=== PATIENT | female | born 1995 | race American Indian/Alaskan Native ===

== ENCOUNTER 2021-02-20 21:14 | Emergency (ER) | payer OTHER ==
[2021-02-20 21:33] VITALS: BP 114/69
--- NOTE | 2021-02-20 22:07 | XRay Report ---
RIGHT KNEE 4 VIEW(S) INDICATION / CLINICAL INFORMATION: Slipped on some water. Right knee injury. COMPARISON: None available. FINDINGS: BONES / JOINT(S): No acute fracture or subluxation. No significant arthritis. SOFT TISSUES: There is a moderate-sized joint effusion which appears slightly dense. ADDITIONAL FINDINGS: None. IMPRESSION: 1. No acute osseous abnormality is identified. However, there is a moderate-sized slightly dense join t effusion which could indicate a hemarthrosis. MRI may be helpful for further evaluation, if clinica lly warranted. Signer Name: Keenan Barnes MD Signed: 02/20/2021 10:03 PM Workstation Name: [id number]
--- NOTE | 2021-02-20 23:27 | Emergency Department Report ---
ED Lower Extremity HPI - General Chief Complaint: Extremity Injury, Lower Stated Complaint: RT KNEE INJURY Source: patient Mode of arrival: Ambulatory Limitations: No Limitations - History of Present Illness Initial Comments: Patient is a 25-year-old -[place] female who presents for right anterior knee pain status post hyperextension slipping on water at home today. Patient states fall impacting her right knee. Now with difficulty walking. States hyperextension and possible dislocation however she was able to self reduce by straightening. Patient is partial weightbearing states limping. There is no numbness or tingling. There is 5/10 pain that is sharp exacerbated by weightbearing. Pain is relieved by offloading. Range of motion remains intact there is no obvious deformity. No laceration abrasions or bleeding. MD Complaint: knee injury - Related Data Previous Rx's Medication Instructions Recorded Last Taken Type Menthol/Camphor [[place] 1 applicatio TP Q6H PRN #1 tube 02/20/21 Unknown Rx Ointment] Naproxen 500 mg PO BID PRN #30 tablet 02/20/21 Unknown Rx predniSONE [Deltasone] 40 mg PO QDAY 5 Days #10 tab 02/20/21 Unknown Rx Allergies Allergy/AdvReac Type Severity Reaction Status Date / Time No Known Allergies Allergy Unverified 02/20/21 21:29 ED Review of Systems ROS: Stated complaint: RT KNEE INJURY Other details as noted in HPI Constitutional: denies: chills, fever Eyes: denies: eye pain, eye discharge, vision change ENT: denies: ear pain, throat pain Respiratory: denies: cough, shortness of breath, wheezing Cardiovascular: denies: chest pain, palpitations Endocrine: no symptoms reported Gastrointestinal: denies: abdominal pain, nausea, diarrhea Genitourinary: denies: urgency, dysuria, discharge Musculoskeletal: joint swelling, other (knee pain ) Skin: denies: rash, lesions Neurological: denies: headache, weakness, paresthesias Psychiatric: denies: anxiety, depression Hematological/Lymphatic: denies: easy bleeding, easy bruising ED Past Medical Hx - Social History Smoking Status: Never Smoker - Medications Home Medications: Home Medications Medication Instructions Recorded Confirmed Last Taken Type Menthol/Camphor [[place] 1 applicatio TP Q6H PRN #1 tube 02/20/21 Unknown Rx Ointment] Naproxen 500 mg PO BID PRN #30 tablet 02/20/21 Unknown Rx predniSONE [Deltasone] 40 mg PO QDAY 5 Days #10 tab 02/20/21 Unknown Rx ED Physical Exam - General Limitations: No Limitations General appearance: alert, in no apparent distress - Head Head exam: Present: atraumatic, normocephalic - Eye Eye exam: Present: normal appearance, PERRL, EOMI Pupils: Present: normal accommodation - ENT ENT exam: Present: normal exam, mucous membranes moist - Neck Neck exam: Present: normal inspection, full ROM. Absent: tenderness - Respiratory Respiratory exam: Present: normal lung sounds bilaterally. Absent: respiratory distress, wheezes, stridor, chest wall tenderness - Cardiovascular Cardiovascular Exam: Present: regular rate, normal rhythm, normal heart sounds. Absent: systolic murmur, diastolic murmur, rubs, gallop - GI/Abdominal GI/Abdominal exam: Present: soft, normal bowel sounds - Extremities Exam Extremities exam: Present: full ROM, tenderness, normal capillary refill, joint swelling (right knee ). Absent: calf tenderness - Expanded Lower Extremity Exam Right Knee exam: Present: full ROM, tenderness, swelling, effusion, pain w/ pronation/supination, pain/laxity with valgus, pain/laxity with varus, full knee extension. Absent: abrasion, laceration, ecchymosis, deformity, crepidus, dislocation, erythema, posterior draw sign Lower Leg exam: Present: full ROM. Absent: tenderness Ankle exam: Present: full ROM. Absent: tenderness Foot/Toe exam: Present: full ROM. Absent: tenderness Neuro vascular tendon exam: Absent: pulse deficit, motor deficit, sensory deficit, tendon deficit Gait: Positive: observed and limited by pain - Back Exam Back exam: Present: normal inspection, full ROM. Absent: tenderness - Neurological Exam Neurological exam: Present: alert, oriented X3, CN II-XII intact, reflexes normal. Absent: motor sensory deficit - Expanded Neurological Exam Expanded Patient oriented to: Present: person, place, time Speech: Present: fluid speech Motor strength exam: RLE: 5, LLE: 5 DTR: knee (R): 2+, knee (L): 2+ Best Eye Response (Jocelyn): (4) open spontaneously Best Motor Response (Jocelyn): (6) obeys commands Best Verbal Response (Jocelyn): (5) oriented [place] Total: 15 - Psychiatric Psychiatric exam: Present: normal affect, normal mood - Skin Skin exam: Present: warm, dry, intact, normal color. Absent: rash ED Course Vital Signs 02/20/21 21:31 Temperature 98.2 F Pulse Rate 81 Respiratory 18 Rate Blood Pressure 114/69 O2 Sat by Pulse 100 Oximetry ED Lower Extremity MDM - Radiology Data Radiology results: report reviewed, image reviewed Date of Service: 02/20/21 Procedure(s): XR knee 3V RT Accession Number(s): [id number] cc: ED DOC, MD Fluoro Time In Minutes: RIGHT KNEE 4 VIEW(S) INDICATION / CLINICAL INFORMATION: Slipped on some water. Right knee injury. COMPARISON: None available. FINDINGS: BONES / JOINT(S) : No acute fracture or subluxation. No significant arthritis. SOFT TISSUES: There is a moderate-sized joint effusion which appears slightly dense. ADDITIONAL FINDINGS: None. IMPRESSION: 1. No acute osseous abnormality is identified. However, there is a moderate-sized slightly dense joint effusion which could indicate a hemarthrosis. MRI may be helpful for further evaluation, if clinically warranted. Signer Name: Mag Barnes MD Signed: 02/20/2021 10:03 PM Workstation Name: [id number] Transcribed By: SS Dictated By: MAG BARNES Electronically Authenticated By: MAG BARNES Signed Date/Time: 02/20/212202 DD/ 00 TD/TT: - Medical Decision Making IMPRESSION: 1. No acute osseous abnormality is identified. However, there is a moderate-sized slightly dense joint effusion which could indicate a hemarthrosis. MRI may be helpful for further evaluation, if clinically warranted. Pt declines [place] Wrap plan: dc to home, Crutches, RICE Therapy, NSAIDs prn, follow up with orthopedics Critical care attestation.: If time is entered above; I have spent that time in minutes in the direct care of this critically ill patient, excluding procedure time. ED Disposition Clinical Impression: Effusion of knee joint right Knee sprain Qualifiers: Encounter type: initial encounter Involved ligament of knee: unspecified ligament Laterality: right Qualified Code(s): S83.91XA - Sprain of unspecified site of right knee, initial encounter Disposition: DC-01 TO HOME OR SELFCARE Is pt being admited?: No Does the pt Need Aspirin: No Condition: Stable Instructions: Elastic Bandage and RICE Therapy, Knee Effusion, [id number] Prescriptions: predniSONE [Deltasone] 40 mg PO QDAY 5 Days #10 tab Naproxen 500 mg PO BID PRN #30 tablet PRN Reason: pain Menthol/Camphor [[place] Ointment] 1 applicatio TP Q6H PRN #1 tube PRN Reason: pain Referrals: MAXWELL GUTIERREZ MD [Staff Physician] - 3-5 Days Forms: Work/School Release Form(ED) Time of Disposition: 23:40
[2021-02-20] MEDS ORDERED: traMADol 50 MG TAB PO ONE (23:28)
== END 2021-02-21 00:06 | disposition home or self-care (01) ==
LOC: ED 21:14
DX: S83.91XA Sprain of unspecified site of right knee, initial encounter (principal); M25.461 Effusion, right knee; Z79.899 Other long term (current) drug therapy; W01.0XXA Fall on same level from slipping, tripping and stumbling without subsequent striking against object, initial encounter; Y93.89 Activity, other specified; Y92.099 Unspecified place in other non-institutional residence as the place of occurrence of the external cause; Y99.8 Other external cause status